=== PATIENT | male | born 2000 | race Caucasian/White ===

== ENCOUNTER 2021-05-07 09:04 | Inpatient (IN) | payer MEDICAID, SELFPAY ==
[~2021-05-07] VITALS: Ht 172.7 cm; Wt 64.0 kg
[2021-05-07 09:29] VITALS: BP_SYST 134
[2021-05-07] MEDS ORDERED: ONDANSETRON HCL 4 MG/2 ML VIAL IVP ONE (10:00)
[2021-05-07] MEDS ORDERED: NACL 0.9% 1,000 ML IV ONE (10:45)
[2021-05-07 10:54] LABS: CALCIUM 8.5 mg/dL (8.4-11.0); CREATININE 0.76 mg/dL (0.55-1.30); EOSINOPHILS % (AUTO) 0.3 % (0.0-4.0); HEMATOCRIT 45.3 % (36-54); LYMPHOCYTES # (AUTO) 1.2 K/uL (1.0-5.5); LYMPHOCYTES % (AUTO) 9.2 % (20.5-51.5); MEAN CORPUSCULAR HEMOGLOBIN 34 pg (27-31); MEAN CORPUSCULAR HGB CONC 33 % (32-36); MEAN CORPUSCULAR VOLUME 101 fL (79.0-98.0); MONOCYTES % (AUTO) 7.4 % (1.7-9.3); NEUTROPHILS # (AUTO) 11.3 K/uL (1.8-7.7); NEUTROPHILS % (AUTO) 83.1 % (40.0-70.0); PLATELET COUNT (AUTO) 128 K/uL (130-430); POTASSIUM 3.4 mmol/L (3.5-5.1); RED BLOOD CELL COUNT(AUTO) 4.47 MIL/uL (4.2-6.2); RED CELL DISTRIBUTION WIDTH 14.5 % (9.0-15.0); WHITE BLOOD COUNT (AUTO) 13.6 K/uL (4.8-10.8)
[2021-05-07 10:58] LABS: ALBUMIN 3.8 g/dL (3.4-4.8); TOTAL BILIRUBIN 0.4 mg/dL (0.0-1.0)
[2021-05-07 11:21] LABS: BILIRUBIN,URINE NEGATIVE (NEGATIVE); BLOOD, URINE NEGATIVE (NEGATIVE); CLARITY/URINE CLEAR (CLEAR); COLOR,URINE YELLOW (YELLOW); GLUCOSE,URINE NEGATIVE (NEGATIVE); KETONES,URINE NEGATIVE (NEGATIVE); LEUKOCYTE ESTERASE ,URINE NEGATIVE (NEGATIVE); NITRITE, URINE NEGATIVE (NEGATIVE); PROTEIN URINE TRACE (NEGATIVE); UROBILINOGEN,URINE 0.2 (0.2-1.0)
[2021-05-07] MEDS ORDERED: DEXAMETHASONE SOD PHOSPHATE 4 MG/ML VIAL IVP ONE ×2 (12:00→15:30)
[2021-05-07] MEDS ORDERED: METOCLOPRAMIDE HCL 10 MG/2 ML VIAL IVP ONE (15:00)
[2021-05-07] MEDS ORDERED: DIPHENHYDRAMINE INJ 50 MG/ML VIAL IVP ONE (15:00)
[2021-05-07] MEDS ORDERED: ONDANSETRON HCL 4 MG/2 ML VIAL IVP PRN ×2 (16:15→18:15)
[2021-05-07 17:09] VITALS: BP_SYST 128
[2021-05-07] MEDS: D5/0.45 NS 1,000 ML IV SCH (17:40)
[2021-05-07] MEDS ORDERED: HYDROcodone/ACETAMIN 5-325 MG TAB (NORCO/ VICODIN) PO PRN (18:15)
[2021-05-07] MEDS ORDERED: MORPHINE 2 MG/ML INJ. SYRINGE IVP PRN (18:15)
[2021-05-07] MEDS ORDERED: MORPHINE 4 MG INJ. 4 MG/ML VIAL IVP PRN (18:15)
[2021-05-07] MEDS ORDERED: ACETAMINOPHEN 325 MG TABLET PO PRN ×2 (18:15→18:30)
[2021-05-07] MEDS ORDERED: NALOXONE HCL 0.4 MG/ML AMP (NARCAN) IVP PRN ×3 (18:15)
[2021-05-07] MEDS ORDERED: HYDROcodone/ACETAMIN 10-325 MG TAB PO PRN (18:15)
[2021-05-07 21:00] VITALS: BP_SYST 147
[2021-05-08] VITALS (43 sets, daily range): BP systolic 0–179
[2021-05-08] MEDS: LORazepam 2 MG/ML VIAL IVP PRN ×2 (01:42→05:18)
[2021-05-08] MEDS ORDERED: PHENYTOIN SODIUM INJ 500 MG in NS 50 ML IV ONE (01:45)
[2021-05-08 02:17] LABS: BASOPHILS % (AUTO) 0.1 % (0.0-2.0); HEMATOCRIT 44.7 % (36-54); HEMOGLOBIN 14.9 g/dL (14.0-18.0); LYMPHOCYTES # (AUTO) 0.6 K/uL (1.0-5.5); MEAN CORPUSCULAR HEMOGLOBIN 33 pg (27-31); MEAN CORPUSCULAR HGB CONC 33 % (32-36); MEAN CORPUSCULAR VOLUME 101 fL (79.0-98.0); MONOCYTES # (AUTO) 0.8 K/uL (0.0-1.0); MONOCYTES % (AUTO) 4.2 % (1.7-9.3); NEUTROPHILS # (AUTO) 17.3 K/uL (1.8-7.7); NEUTROPHILS % (AUTO) 92.7 % (40.0-70.0); PLATELET COUNT (AUTO) 140 K/uL (130-430); RED BLOOD CELL COUNT(AUTO) 4.45 MIL/uL (4.2-6.2); RED CELL DISTRIBUTION WIDTH 14.2 % (9.0-15.0); WHITE BLOOD COUNT (AUTO) 18.7 K/uL (4.8-10.8)
[2021-05-08] MEDS ORDERED: PHENYTOIN SODIUM 100 MG/2 ML VIAL (DILANTIN) ONE ×2 (02:17→02:19)
[2021-05-08 02:19] LABS: ANION GAP 16 (5-15); CHLORIDE 93 mmol/L (98-107); CREATININE 0.95 mg/dL (0.55-1.30); GLUCOSE 152 mg/dL (70-99); POTASSIUM 3.7 mmol/L (3.5-5.1); SODIUM SERUM 130 mmol/L (136-145); UREA NITROGEN, BLOOD 20 mg/dL (8-21)
[2021-05-08 02:42] LABS: GFR AFRICAN AMERICAN 127 mL/min (>90)
[2021-05-08] MEDS ORDERED: LORazepam 2 MG/ML VIAL ONE (03:22)
[2021-05-08] MEDS ORDERED: NACL 0.9% 1,000 ML IV ONE ×3 (03:30→14:45)
[2021-05-08] MEDS ORDERED: LORazepam 2 MG/ML VIAL IVP ONE (03:30)
[2021-05-08] MEDS: D5/0.45 NS 1,000 ML IV SCH ×2 (03:31→12:15)
[2021-05-08] MEDS ORDERED: LORazepam 2 MG/ML VIAL IVP PRN (05:15)
[2021-05-08] MEDS ORDERED: PIPERACILLIN/TAZOBACTAM 3.375 GM/VIAL (ZOSYN) IV ONE (05:39)
[2021-05-08] MEDS: PIPERACILLIN/TAZO 3.375/DEX-IS 50 ML IV SCH ×3 (05:44→18:00)
[2021-05-08] MEDS ORDERED: DEXAMETHASONE SOD PHOSPHATE 10 MG/ML VIAL IVP ONE (09:00)
[2021-05-08] MEDS ORDERED: levETIRAcetam 500 MG TABLET PO SCH (09:00)
[2021-05-08] MEDS ORDERED: PHENYTOIN 100 MG CAPSULE PO SCH (09:00)
[2021-05-08] MEDS ORDERED: PANTOPRAZOLE SODIUM 40 MG/VIAL (PROTONIX) IVP ONE (11:30)
[2021-05-08] MEDS ORDERED: NOREPINEPHRINE 4 MG/4 ML VIAL IV ONE ×3 (13:15→20:20)
[2021-05-08] MEDS ORDERED: NOREPINEPHRINE BITARTRATE 8 MG in NS 242 ML IV PRN (13:45)
[2021-05-08 14:24] LABS: POTASSIUM 4.4 mmol/L (3.5-5.1)
[2021-05-08] MEDS ORDERED: VANCOMYCIN HCL 750 MG in NS 250 ML IV ONE (14:30)
[2021-05-08] MEDS ORDERED: NOREPINEPHRINE BITARTRATE 16 MG in NS 234 ML IV PRN (14:30)
[2021-05-08] MEDS ORDERED: SODIUM BICARBONATE 8.4% JECT 50 MEQ/50 ML SYRINGE IVP ONE ×2 (14:45→23:55)
[2021-05-08] MEDS ORDERED: PHENYLEPHRINE HCL 100 MG in NS 240 ML IV PRN (15:00)
[2021-05-08] MEDS ORDERED: DEXAMETHASONE SOD PHOSPHATE 10 MG/ML VIAL IVP SCH ×2 (16:00→18:00)
[2021-05-08] MEDS ORDERED: METOPROLOL TARTRATE 5 MG/5 ML AMPUL ONE (18:54)
[2021-05-08] MEDS ORDERED: METOPROLOL TARTRATE 5 MG/5 ML AMPUL IVP PRN (19:00)
[2021-05-08] MEDS ORDERED: NACL 0.9% 1,000 ML IV SCH (20:00)
[2021-05-08] MEDS ORDERED: VASOPRESSIN 20 UNITS/ML VIAL IV ONE (20:15)
[2021-05-08] MEDS ORDERED: VASOPRESSIN 40 UNITS in NS 38 ML IV PRN (20:15)
[2021-05-08] MEDS ORDERED: AMIODARONE HCL 450 MG in D5W 241 ML IV SCH (20:15)
[2021-05-08] MEDS ORDERED: PHENYLEPHRINE HCL 10 MG/ML VIAL (NEOSYNEPHRINE) ONE (20:20)
[2021-05-08] MEDS ORDERED: levETIRAcetam 500 MG in NS 100 ML IV SCH (21:00)
[2021-05-08] MEDS ORDERED: PHENYTOIN SODIUM 100 MG/2 ML VIAL (DILANTIN) IVP SCH (21:00)
[2021-05-08] MEDS ORDERED: VANCOMYCIN HCL 750 MG in NS 250 ML IV SCH (22:00)
[2021-05-08] MEDS ORDERED: EPINEPHrine 1 MG/ML VIAL ONE (22:32)
[2021-05-08] MEDS ORDERED: EPINEPHrine JECT 0.1 MG/ML SYR ONE (22:33)
[2021-05-08] MEDS ORDERED: EPINEPHrine 5 MG in NS 245 ML IV PRN (22:45)
[2021-05-08] MEDS ORDERED: EPINEPHrine JECT 0.1 MG/ML SYR IVP ONE (23:55)
[2021-05-08] MEDS ORDERED: ATROPINE SULFATE 1 MG/10 ML SYRINGE IVP ONE (23:55)
[2021-05-09] MEDS ORDERED: PANTOPRAZOLE SODIUM 40 MG/VIAL (PROTONIX) IVP SCH (09:00)
== END 2021-05-08 23:56 | DRG 720 ==
LOC: SED 09:04 → SMU 16:01 → STU 05-08 04:36 → SIC 05-08 05:57
PROVIDERS: ADMIT Preventive Medicine Preventive Medicine/Occupational Environmental Medicine; ATTEND Preventive Medicine Preventive Medicine/Occupational Environmental Medicine
PROC: 5A1935Z Respiratory Ventilation, Less than 24 Consecutive Hours (ICD-10-PCS; principal; 2021-05-08)
PROC: 5A2204Z Restoration of Cardiac Rhythm, Single (ICD-10-PCS; 2021-05-08)
PROC: 0BH17EZ Insertion of Endotracheal Airway into Trachea, Via Natural or Artificial Opening (ICD-10-PCS; 2021-05-08)
DX: A41.9 Sepsis, unspecified organism (principal); J96.01 Acute respiratory failure with hypoxia; J69.0 Pneumonitis due to inhalation of food and vomit; R65.21 Severe sepsis with septic shock; I47.2 Ventricular tachycardia; C79.31 Secondary malignant neoplasm of brain; I46.9 Cardiac arrest, cause unspecified; R73.9 Hyperglycemia, unspecified; R56.9 Unspecified convulsions; E87.1 Hypo-osmolality and hyponatremia; Z20.822 Contact with and (suspected) exposure to COVID-19; E87.4 Mixed disorder of acid-base balance; F12.90 Cannabis use, unspecified, uncomplicated; R51.9 Headache, unspecified; C62.90 Malignant neoplasm of unspecified testis, unspecified whether descended or undescended; E87.6 Hypokalemia; Z92.21 Personal history of antineoplastic chemotherapy; Z92.3 Personal history of irradiation; Z99.11 Dependence on respirator [ventilator] status
CPT/HCPCS: 36415; 36600; 70450-TC; 71045; 76376; 76700-TC; 80048; 80051; 80053; 81003; 82550; 82803-TC; 82962; 83605; 83690; 83735; 84484; 85025; 87040-TC; 87081; 92950; 94002; 94640; 95816; 96361; 96374; 96375; 99285; J0171; J0461; J1100; J1165; J1200; J1953; J2060; J2270; J2370; J2405; J2543; J2765; J3490; J7050